=== PATIENT | male | born 1970 | race Hispanic/Latino ===

== ENCOUNTER 2016-12-06 16:56 | Emergency (ER) | payer SELFPAY ==
[2016-12-07 00:59] LABS: Basophils % (Auto) 0.4 % (0.0-1.8); Hematocrit 42.7 % (35.5-45.6); Hemoglobin 13.9 gm/dl (11.8-15.2); Mean Corpuscular HGB Conc 33 % (32-34); Mean Corpuscular Hemoglobin 27 pg (28-32); Mean Corpuscular Volume 82 fl (84-94); Platelet Count 352 K/mm3 (140-440); Red Blood Count 5.19 M/mm3 (3.65-5.03); Red Cell Distribution Width 16.5 % (13.2-15.2); White Blood Count 10.7 K/mm3 (4.5-11.0)
[2016-12-07 01:15] LABS: Anion Gap 21 mmol/L; BUN/Creatinine Ratio 13.75; Blood Urea Nitrogen 11 mg/dL (9-20); Calcium 10.1 mg/dL (8.4-10.2); Carbon Dioxide 22 mmol/L (22-30); Chloride 101.4 mmol/L (98-107); Glucose 98 mg/dL (75-100); Potassium 4.4 mmol/L (3.6-5.0); Sodium 140 mmol/L (137-145)
[2016-12-07 03:32] LABS: Uric Acid 7.2 mg/dL (3.5-7.6)
[2016-12-07] MEDS ORDERED: NORCO 7.5/325 PO ONE (03:47)
[2016-12-07] MEDS ORDERED: LASIX PO ONE (03:47)
--- NOTE | 2016-12-07 05:58 | Emergency Department Report ---
HPI - General Chief Complaint: Extremity Problem,Nontraumatic Time Seen by Provider: 12/07/16 03:47 - HPI HPI: Patient is 46-year-old male presents for evaluation of left knee pain and bilateral lower leg swelling. The patient reports recurrence of chronic left knee pain for the past 2-3 days. She states that his experience pain in the left knee, and swelling in the lower legs for the past 2 months. He states that since his pain recurred 2-3 days ago, it has been constant, 10/10 in severity, throbbing in quality, exacerbated with ambulation or weightbearing. He shares that he has received drainage of fluid in the left knee at [facility] in the past including one week ago. He denies trauma or new injury to the left knee, fever, chills, night sweats, redness, paresthesias, motor deficit in the legs, shortness of breath, chest pain. ED Past Medical Hx - Past Medical History Previous Medical History?: Yes Hx Hypertension: Yes Hx CVA: Yes Hx Diabetes: Yes - Surgical History Past Surgical History?: No - Social History Smoking Status: Current Every Day Smoker Substance Use Type: Alcohol - Medications Home Medications: Home Medications Medication Instructions Recorded Confirmed Last Taken Type Furosemide [Lasix TAB] 40 mg PO QDAY #30 tablet 12/07/16 Unknown Rx Gabapentin [Neurontin] 300 mg PO Q8HR 12/07/16 12/07/16 Unknown History HYDROcodone/APAP 7.5-325 [[place] 1 each PO Q8HR PRN #10 tablet 12/07/16 Unknown Rx 7.5-325 mg TAB] Lisinopril [Zestril] 20 mg PO QDAY 12/07/16 12/07/16 Unknown History Metformin HCl [Glucophage] 1,000 mg PO BID 12/07/16 12/07/16 Unknown History Rosuvastatin Calcium [Crestor] 40 mg PO Q8H 12/07/16 12/07/16 Unknown History amLODIPine/ATORVASTATIN 1 tab PO DAILY 12/07/16 12/07/16 Unknown History [Amlodipine-Atorvast 10-10 mg] ED Review of Systems ROS: Stated complaint: LT LEG PAIN Other details as noted in HPI Constitutional: denies: fever ENT: denies: throat or neck pain Respiratory: denies: cough, shortness of breath Cardiovascular: denies: chest pain Endocrine: denies unexplained weight loss or gain Gastrointestinal: denies: abdominal pain, nausea Genitourinary: denies: dysuria Musculoskeletal: reports leg pain and leg swelling Skin: denies: rash Neurological: denies: headache Hematological/Lymphatic: denies: easy bleeding or easy bruising Psych: denies sadness or hopelessness Physical Exam - Physical Exam Vital Signs: Vital Signs 12/06/16 12/06/16 12/07/16 19:30 23:40 00:47 Temperature 98.3 F 98.4 F Pulse Rate 95 H 81 Respiratory 20 18 Rate Blood Pressure 122/85 Blood Pressure 144/94 [Right] O2 Sat by Pulse 99 98 97 Oximetry 12/07/16 12/07/16 12/07/16 00:51 00:52 01:00 Temperature Pulse Rate Respiratory 18 Rate Blood Pressure 147/92 136/91 Blood Pressure [Right] O2 Sat by Pulse 98 100 99 Oximetry 12/07/16 12/07/16 12/07/16 01:09 01:11 01:21 Temperature Pulse Rate 86 Respiratory 18 Rate Blood Pressure 136/91 129/93 Blood Pressure 136/91 [Right] O2 Sat by Pulse 99 97 99 Oximetry 12/07/16 12/07/16 12/07/16 01:30 01:41 01:51 Temperature Pulse Rate Respiratory Rate Blood Pressure 134/86 134/86 140/90 Blood Pressure [Right] O2 Sat by Pulse 97 97 99 Oximetry 12/07/16 12/07/16 12/07/16 02:00 02:11 02:21 Temperature Pulse Rate Respiratory Rate Blood Pressure 145/85 145/85 139/84 Blood Pressure [Right] O2 Sat by Pulse 95 97 97 Oximetry 12/07/16 12/07/16 12/07/16 02:30 02:41 02:51 Temperature Pulse Rate Respiratory Rate Blood Pressure 133/89 133/89 149/88 Blood Pressure [Right] O2 Sat by Pulse 94 98 98 Oximetry 12/07/16 04:32 Temperature Pulse Rate Respiratory 18 Rate Blood Pressure Blood Pressure [Right] O2 Sat by Pulse Oximetry Physical Exam: General: well-nourished, well-developed, no acute distress Head: Normocephalic, atraumatic Eyes: normal sclera ENT: Mucous membranes are pink and moist Neck: trachea midline, neck supple, No neck stiffness, no cervical adenopathy Respiratory: Breath sounds equal bilaterally, no wheezing, rales, or rhonchi Cardio: S1 and S2 present, no murmurs, rubs, gallops, capillary refill is brisk Abdomen: Normoactive bowel sounds, soft abdomen, no tenderness Musc: 1+ pitting edema to bilateral lower legs, swelling and effusion present to the left knee, tens to palpation presents to the left knee lateral and medial joint lines, posterior drawer sign is negative, Bety's negative, no LCL or MCL laxity, no redness, warmth, or crepitus to the left knee, no sign of infection, no ecchymosis or calf Muscle tenderness to the distal lower legs, no sign of DVT at this time Skin: No rash Neuro: no facial drooping, normal speech Psych: Normal affect ED Course Vital Signs 12/06/16 12/06/16 12/07/16 19:30 23:40 00:47 Temperature 98.3 F 98.4 F Pulse Rate 95 H 81 Respiratory 20 18 Rate Blood Pressure 122/85 Blood Pressure 144/94 [Right] O2 Sat by Pulse 99 98 97 Oximetry 12/07/16 12/07/16 12/07/16 00:51 00:52 01:00 Temperature Pulse Rate Respiratory 18 Rate Blood Pressure 147/92 136/91 Blood Pressure [Right] O2 Sat by Pulse 98 100 99 Oximetry 12/07/16 12/07/16 12/07/16 01:09 01:11 01:21 Temperature Pulse Rate 86 Respiratory 18 Rate Blood Pressure 136/91 129/93 Blood Pressure 136/91 [Right] O2 Sat by Pulse 99 97 99 Oximetry 12/07/16 12/07/16 12/07/16 01:30 01:41 01:51 Temperature Pulse Rate Respiratory Rate Blood Pressure 134/86 134/86 140/90 Blood Pressure [Right] O2 Sat by Pulse 97 97 99 Oximetry 12/07/16 12/07/16 12/07/16 02:00 02:11 02:21 Temperature Pulse Rate Respiratory Rate Blood Pressure 145/85 145/85 139/84 Blood Pressure [Right] O2 Sat by Pulse 95 97 97 Oximetry 12/07/16 12/07/16 12/07/16 02:30 02:41 02:51 Temperature Pulse Rate Respiratory Rate Blood Pressure 133/89 133/89 149/88 Blood Pressure [Right] O2 Sat by Pulse 94 98 98 Oximetry 12/07/16 04:32 Temperature Pulse Rate Respiratory 18 Rate Blood Pressure Blood Pressure [Right] O2 Sat by Pulse Oximetry ED Medical Decision Making - Lab Data Result diagrams: 12/07/16 00:42 12/07/16 00:42 - Medical Decision Making The patient was seen and examined by myself. The patient is placed on a hall monitor and continuous pulse ox. On initial evaluation, the patient was found to be in no distress. Evaluation orders were placed. The patient is given a tablet of [place] for his pain and Lasix for leg swelling. Lab results are unremarkable including normal WBC and uric acid level. The patient was reevaluated and reported that their symptoms were markedly improved. The patient is stable for discharge with outpatient follow-up. The patient is given follow-up and return instructions. The patient expressed understanding and agreed with the plan. The patient is discharged in stable condition. Critical care attestation.: If time is entered above; I have spent that time in minutes in the direct care of this critically ill patient, excluding procedure time. ED Disposition Clinical Impression: Localized swelling of both lower legs Left knee pain Qualifiers: Chronicity: acute Qualified Code(s): M25.562 - Pain in left knee Disposition: DISCHARGED TO HOME OR SELFCARE Is pt being admited?: No Does the pt Need Aspirin: No Condition: Stable Instructions: Arthralgia (ED), Knee Pain (ED), Knee Effusion (ED), Leg Edema ( ED) Referrals: PRIMARY CARE, [Primary Care Provider] - 3-5 Days Time of Disposition: 05:53
[2016-12-07 06:11] VITALS: BP 139/96
== END 2016-12-07 07:00 | disposition home or self-care (01) ==
LOC: ED 16:56
DX: M25.562 Pain in left knee (principal); M79.89 Other specified soft tissue disorders; I10 Essential (primary) hypertension; E11.9 Type 2 diabetes mellitus without complications; F17.200 Nicotine dependence, unspecified, uncomplicated; Z86.73 Personal history of transient ischemic attack (TIA), and cerebral infarction without residual deficits
CPT/HCPCS: 36415; 80048; 84550; 85025; 99284